=== PATIENT | male | born 1965 | race Caucasian/White ===

== ENCOUNTER 2018-10-31 09:19 | Day surgery (SDC) | payer OTHER ==
[~2018-10-31] VITALS: Ht 172.7 cm; Wt 106.2 kg
[~2018-10-31 09:19] MED LIST: AMLO10TA5 PO; CHLO125TA PO; FLON1SPR; LIDOCAINE 2% INJ 100 MG/5 ML SDV (FOR ANES.) As Ordered ONE; NS 1,000 ML IV ONE; PROPOFOL 200 MG/20 ML VIAL As Ordered ONE; TRAN1TAB49 PO; VENTAER IN
[2018-10-31] MEDS ORDERED: PROPOFOL 200 MG/20 ML VIAL As Ordered ONE ×2 (11:34→11:48)
--- NOTE | 2018-10-31 11:35 | ROOR ---
Patient Name: Michele Dietz Procedure Date: 10/31/2018 11:16 AM Date of : 1965 Age: 53 Room: [facility] Gender: Male Note Status: Finalized Procedure: Upper Endoscopy + Biopsies Indications: Heartburn, Exclusion of Garcia's esophagus Providers: Jared Tiwari MD Referring MD: SERAFIN RHODES MD Requesting Provider: Medicines: Monitored Anesthesia Care Complications: No immediate complications. Procedure: Pre-Anesthesia Assessment: - The heart rate, respiratory rate, oxygen saturations, blood pressure, adequacy of pulmonary ventilation, and response to care were monitored throughout the procedure. The Endoscope was introduced through the mouth, and advanced to the second part of duodenum. The upper GI endoscopy was accomplished without difficulty. The patient tolerated the procedure well. Findings: The Z-line was regular and was found 40 cm from the incisors. Multiple biopsies were obtained with cold forceps for evaluation to rule out Garcia's Esophagus randomly at the gastroesophageal junction. A small hiatal hernia was present. No other significant abnormalities were identified in a careful examination of the stomach. Localized mild mucosal changes characterized by congestion and flattening were found in the first portion of the duodenum. Biopsies for histology were taken with a cold forceps for evaluation of celiac disease. The exam was otherwise without abnormality. Impression: - Z-line regular, 40 cm from the incisors. - Small hiatal hernia. - Mucosal changes in the duodenum. Biopsied. - The examination was otherwise normal. - Multiple biopsies were obtained at the gastroesophageal junction. - The examination was otherwise normal. Recommendation: - Patient has a contact number available for emergencies. The signs and symptoms of potential delayed complications were discussed with the patient. Return to normal activities tomorrow. Written discharge instructions were provided to the patient. - Discharge patient to home. - Continue present medications. - Await pathology results. - Telephone GI clinic for pathology results in 1 week. - Check Portal Online for Path Results.([email or web address] - Return to referring physician. - The findings and recommendations were discussed with the patient's family. Jared Tiwari MD Jared Tiwari MD 10/31/2018 11:35:01 AM This report has been signed electronically. Number of Addenda: 0 Note Initiated On: 10/31/2018 11:16 AM Estimated Blood Loss: Estimated blood loss: none.
--- NOTE | 2018-10-31 12:01 | ROOR ---
Patient Name: Michele Dietz Procedure Date: 10/31/2018 11:18 AM Date of : 1965 Age: 53 Room: [facility] Gender: Male Note Status: Finalized Procedure: Total Colonoscopy to Cecum + Cold + Hot Snare Polypectomies + Hemoclips Indications: Colon cancer screening in patient at increased risk: Family history of 1st-degree relative with colon polyps Providers: Jared Tiwari MD Referring MD: SERAFIN RHODES MD Requesting Provider: Medicines: Monitored Anesthesia Care Complications: No immediate complications. Procedure: Pre-Anesthesia Assessment: - The heart rate, respiratory rate, oxygen saturations, blood pressure, adequacy of pulmonary ventilation, and response to care were monitored throughout the procedure. The Colonoscope was introduced through the anus and advanced to the cecum, identified by appendiceal orifice and ileocecal valve. The colonoscopy was performed without difficulty. The patient tolerated the procedure well. The quality of the bowel preparation was good. Findings: The perianal and digital rectal examinations were normal. Non-bleeding internal hemorrhoids were found during retroflexion. The hemorrhoids were small and Grade I (internal hemorrhoids that do not prolapse). Multiple small and large-mouthed diverticula were found in the recto-sigmoid colon, sigmoid colon and descending colon. A medium polyp was found in the cecum. The polyp was sessile. The polyp was removed with a cold snare. Resection and retrieval were complete. To prevent bleeding after the polypectomy, one hemostatic clip was successfully placed (MR conditional). There was no bleeding at the end of the procedure. Two semi-pedunculated polyps were found at 20 cm proximal to the anus. The polyps were large in size. These polyps were removed with a hot snare. Resection and retrieval were complete. To prevent bleeding after the polypectomy, three hemostatic clips were successfully placed (MR conditional). There was no bleeding at the end of the procedure. The exam was otherwise without abnormality on direct and retroflexion views. Impression: - Non-bleeding internal hemorrhoids. - Diverticulosis in the recto-sigmoid colon, in the sigmoid colon and in the descending colon. - One medium polyp in the cecum, removed with a cold snare. Resected and retrieved. Clip (MR conditional) was placed. - Two large polyps at 20 cm proximal to the anus, removed with a hot snare. Resected and retrieved. Clips (MR conditional) were placed. - The examination was otherwise normal on direct and retroflexion views. - The exam was otherwise normal to the cecum. Recommendation: - Patient has a contact number available for emergencies. The signs and symptoms of potential delayed complications were discussed with the patient. Return to normal activities tomorrow. Written discharge instructions were provided to the patient. - Resume previous diet. - Discharge patient to home. - Continue present medications. - Await pathology results. - Telephone GI clinic for pathology results in 1 week. - Repeat colonoscopy for surveillance based on pathology results. - Return to referring physician. - Check Portal Online for Path Results.([email or web address]) - The findings and recommendations were discussed with the patient's family. Jared Tiwari MD Jared Tiwari MD 10/31/2018 12:01:45 PM This report has been signed electronically. Number of Addenda: 0 Note Initiated On: 10/31/2018 11:18 AM Estimated Blood Loss: Estimated blood loss: none.
[2018-10-31 12:15] VITALS: BP 154/81
== END 2018-10-31 12:31 | disposition home or self-care (01) ==
LOC: M OPP 09:19
PROVIDERS: ATTEND Internal Medicine Gastroenterology
DX: Z12.11 Encounter for screening for malignant neoplasm of colon (principal); Z83.71 Family history of colonic polyps; K64.0 First degree hemorrhoids; D12.0 Benign neoplasm of cecum; K57.30 Diverticulosis of large intestine without perforation or abscess without bleeding; K44.9 Diaphragmatic hernia without obstruction or gangrene; K31.89 Other diseases of stomach and duodenum; R12 Heartburn; Z79.891 Long term (current) use of opiate analgesic; Z79.899 Other long term (current) drug therapy

== ENCOUNTER → 2023-03-04 | Outpatient (REF) | payer OTHER ==
[~2023-03-04] MED LIST changes: -AMLO10TA5 PO; +AMLO1TAB25 PO; -LIDOCAINE 2% INJ 100 MG/5 ML SDV (FOR ANES.) As Ordered ONE; -NS 1,000 ML IV ONE; -PROPOFOL 200 MG/20 ML VIAL As Ordered ONE; -TRAN1TAB49 PO; +TRAN1TAB56 PO
== END ==
LOC: EEVIPCON 16:13 → M LAB REF 16:13
PROVIDERS: ATTEND Physician Assistant Medical
DX: M70.50 Other bursitis of knee, unspecified knee (principal)

== ENCOUNTER → 2023-08-31 | Outpatient (REF) | payer OTHER | LOC: M SFHCDERM 13:29 | PROVIDERS: ATTEND Physician Assistant | DX: D48.5 Neoplasm of uncertain behavior of skin (principal) ==

== ENCOUNTER 2025-06-09 16:38 | Observation (INO) | payer OTHER ==
[~2025-06-09] VITALS: Ht 172.7 cm; Wt 102.3 kg
[2025-06-09] MEDS ORDERED: DRAM1CHW PO (16:47)
[2025-06-09] MEDS ORDERED: SEMA0.5P SQ (16:48)
[2025-06-09] MEDS ORDERED: ISOVUE-370 76% 100 ML VIAL As Ordered ONE (17:22)
[2025-06-09 17:28] LABS: BASO # 0.0 10^3/uL (0.0-0.2); BASO % 0.2 % (0.0-1.0); EOS # 0.0 10^3/uL (0.0-0.5); EOS % 0.1 % (0.0-3.0); LYMPH # 0.7 10^3/uL (1.5-5.0); LYMPH % 5.4 % (24.0-44.0); MONO # 0.5 10^3/uL (0.0-0.8); MONO % 4.1 % (2.0-8.0); NEUTROPHILS # 11.3 10^3/uL (1.5-8.5); NEUTROPHILS % 89.6 % (36.0-66.0); PLATELET COUNT, AUTOMATED 215 10^3/uL (150-450)
[2025-06-09 17:41] LABS: INR 0.89
[2025-06-09 17:56] LABS: CALCIUM LEVEL 9.0 MG/DL (8.3-10.6); CARBON DIOXIDE LEVEL 26 MMOL/L (20-31); CHLORIDE LEVEL 104 MMOL/L (98-107); CREATININE FOR GFR 0.93 MG/DL (0.70-1.30); GLOMERULAR FILTRATION RATE > 90.0 (>49); POTASSIUM SERUM 3.6 MMOL/L (3.5-5.1); SODIUM LEVEL 143 MMOL/L (136-145)
[2025-06-09] MEDS: MECLIZINE 25 MG TABLET PO ONE (18:30)
[2025-06-09] MEDS: ASPIRIN 81 MG CHEWABLE TABLET PO ONE (21:52)
[2025-06-09] MEDS: TOPIRAMATE 25 MG TAB PO ONE (21:53)
[2025-06-10] MEDS ORDERED: prevagen PO (05:05)
[2025-06-10] MEDS ORDERED: FLUT1BLS5 IH (05:05)
[2025-06-10] MEDS ORDERED: LEVOTAB10 PO (05:05)
[2025-06-10] MEDS ORDERED: MULT1TAB7 PO (05:05)
[2025-06-10] MEDS ORDERED: SIMV20TA22 PO (05:05)
[2025-06-10] MEDS ORDERED: DUPI300I SC (05:06)
[2025-06-10] MEDS ORDERED: HOME MED LIST COMPLETE! XX SCH (05:10)
[2025-06-10 07:13] LABS: CHOLESTEROL LEVEL 211.0 MG/DL (<200); CHOLESTEROL RISK RATIO 3.68 (<5); LDL CHOLESTEROL 128.8 MG/DL (<100); NON-HDL-C 153.8 MG/DL; TRIGLYCERIDES LEVEL 125.0 MG/DL (<150)
[2025-06-10] MEDS ORDERED: SIMVASTATIN 10 MG TAB PO SCH ×2 (09:00→21:00)
[2025-06-10 10:47] LABS: ESTIMATED AVERAGE GLUCOSE 108.0 MG/DL (60-110)
[2025-06-10] MEDS: MECLIZINE 25 MG TABLET PO PRN (11:38)
[2025-06-10] MEDS ORDERED: FLUTICASONE PROPIONATE 0.05% NASAL SPRAY 16 GM PRN (11:50)
[2025-06-10] MEDS ORDERED: ALBUTEROL 90 MCG/ACT 8 GM HFA INHALER INH PRN (11:50)
[2025-06-10 13:31] VITALS: BP 149/79
[2025-06-10] MEDS: amLODIPine 10 MG TAB PO SCH (13:31)
[2025-06-10 16:00] VITALS: O2SAT 91
[2025-06-10 16:57] VITALS: O2SAT 93
[2025-06-10 17:37] VITALS: BP 158/84; TEMP 97.8; O2SAT 99
[2025-06-10 18:00] VITALS: O2SAT 91
[2025-06-10] MEDS ORDERED: MECL-86 PO (18:17)
[2025-06-10] MEDS: MECLIZINE 25 MG TABLET PO STA (18:40)
[2025-06-10] MEDS ORDERED: TOPIRAMATE 25 MG TAB PO SCH (21:00)
[2025-06-11] MEDS ORDERED: TOPI-21 PO (00:29)
== END 2025-06-10 18:58 | disposition home or self-care (01) ==
LOC: M ED 16:38 → M ED INP 16:39 → M PCU 06-10 16:59
PROVIDERS: ADMIT Student in an Organized Health Care Education/Training Program; ATTEND Student in an Organized Health Care Education/Training Program
DX: H81.13 Benign paroxysmal vertigo, bilateral (principal); I10 Essential (primary) hypertension; E78.5 Hyperlipidemia, unspecified; J45.909 Unspecified asthma, uncomplicated; R11.2 Nausea with vomiting, unspecified; Z79.899 Other long term (current) drug therapy
CPT/HCPCS: 36415; 70450; 70496; 70498; 70551; 71045; 80047; 80048; 80061; 83036; 85025; 85610; 85730; 93005; 96374; 96375; 97165; 99285; J2765; J3360; Q9967